=== PATIENT | male | born 1980 | race Caucasian/White ===

== ENCOUNTER → 2018-03-08 | Outpatient (REF) | payer BC ==
[2018-03-08 16:47] LABS: TESTOSTERONE 258 NG/DL (241-827)
[2018-03-08 16:47] LABS: PROLACTIN 17.9 NG/ML (2.1-17.7)
[2018-03-14 10:12] LABS: TESTOSTERONE %FREE+WEAKLY BOUN 28.3 % (9.0-46.0); TESTOSTERONE FREE+WEAKLY BOUND 77.3 ng/dL (40.0-250.0); TESTOSTERONE TOTAL 273 ng/dL (264-916)
[2018-03-14 10:12] LABS: GAD-65 AUTOANTIBODY <5.0 U/mL (0.0-5.0)
== END ==
LOC: M LABDRAW1 13:51
DX: F52.21 Male erectile disorder (principal); E11.65 Type 2 diabetes mellitus with hyperglycemia
CPT/HCPCS: 84146

== ENCOUNTER → 2018-10-01 | Outpatient (REF) | payer BC ==
[2018-10-01 14:22] LABS: PROLACTIN 8.8 NG/ML (2.1-17.7)
[2018-10-05 00:06] LABS: SOMATOMEDIN-C INSULIN GROWTH 92 ng/mL (83-233); TESTOSTERONE %FREE+WEAKLY BOUN 21.5 % (9.0-46.0); TESTOSTERONE FREE+WEAKLY BOUND 33.8 ng/dL (40.0-250.0); TESTOSTERONE TOTAL 157 ng/dL (264-916)
== END ==
LOC: M LABDRAW1 11:38
PROVIDERS: ATTEND Internal Medicine Endocrinology, Diabetes & Metabolism
DX: F52.21 Male erectile disorder (principal)

== ENCOUNTER → 2019-01-11 | Outpatient (REF) | payer BC ==
[2019-01-11 11:53] LABS: PROSTATIC SPECIFIC AG MONITOR 0.36 NG/ML (< 4.00)
== END ==
LOC: M LABDRAW1 08:56
PROVIDERS: ATTEND Internal Medicine Endocrinology, Diabetes & Metabolism
DX: F52.21 Male erectile disorder (principal)

== ENCOUNTER → 2019-04-22 | Outpatient (REF) | payer BC | LOC: M LABDRAW1 11:38 | PROVIDERS: ATTEND Internal Medicine Endocrinology, Diabetes & Metabolism | DX: F52.21 Male erectile disorder (principal) ==

== ENCOUNTER → 2019-10-17 | Outpatient (REF) | payer BC ==
[2019-10-17 12:43] LABS: HEMATOCRIT 45.6 % (42.0-52.0); HEMOGLOBIN 15.9 g/dl (13.5-17.5); MEAN CORPUSCULAR HEMOGLOBIN 31.6 pg (27.0-33.0); MEAN CORPUSCULAR HGB CONC 34.9 g/dl (32.0-36.5); MEAN CORPUSCULAR VOLUME 90.7 fl (80.0-96.0); PLATELET COUNT, AUTOMATED 213 10^3/uL (150-450); RED BLOOD COUNT 5.03 10^6/uL (4.30-6.10); WHITE BLOOD COUNT 6.5 10^3/uL (4.0-10.0)
== END ==
LOC: M LABDRAW1 12:05
PROVIDERS: ATTEND Internal Medicine Endocrinology, Diabetes & Metabolism
DX: F52.21 Male erectile disorder (principal)

== ENCOUNTER → 2021-06-28 | Outpatient (REF) | payer BC ==
[2021-06-28 18:56] LABS: CREATININE, URINE 98.9 MG/DL; MALB URINE SIEMENS 7.8 MG/L; MAU/CREAT RATIO 7.8 MCG/MG (0.0-30.0)
== END ==
LOC: M LAB REF 17:09
PROVIDERS: ATTEND Internal Medicine Endocrinology, Diabetes & Metabolism
DX: F52.21 Male erectile disorder (principal)

== ENCOUNTER 2023-05-14 07:56 | Emergency (ER) | payer BC ==
[~2023-05-14] VITALS: Ht 185.4 cm; Wt 95.7 kg
[2023-05-14 07:56] VITALS: TEMP 96.9
[2023-05-14 08:43] LABS: BASO # 0.1 10^3/uL (0.0-0.2); BASO % 0.7 % (0.0-1.0); EOS # 0.1 10^3/uL (0.0-0.5); EOS % 1.4 % (0.0-3.0); HEMATOCRIT 45.5 % (42.0-52.0); HEMOGLOBIN 16.3 g/dl (13.5-17.5); LYMPH # 1.2 10^3/uL (1.5-5.0); LYMPH % 11.8 % (24.0-44.0); MEAN CORPUSCULAR HEMOGLOBIN 32.1 pg (27.0-33.0); MEAN CORPUSCULAR HGB CONC 35.8 g/dl (32.0-36.5); MEAN CORPUSCULAR VOLUME 89.6 fl (80.0-96.0); MONO # 0.5 10^3/uL (0.0-0.8); MONO % 4.5 % (2.0-8.0); NEUTROPHILS # 8.1 10^3/uL (1.5-8.5); NEUTROPHILS % 80.8 % (36.0-66.0); PLATELET COUNT, AUTOMATED 210 10^3/uL (150-450); RED BLOOD COUNT 5.08 10^6/uL (4.30-6.10); WHITE BLOOD COUNT 10.1 10^3/uL (4.0-10.0)
[2023-05-14] MEDS ORDERED: MAALOX 30 ML SUSP *UDC PO ONE (08:50)
[2023-05-14 09:17] LABS: ALBUMIN 4.2 G/DL (3.2-5.2); BILIRUBIN,DIRECT 0.2 MG/DL (<0.4); BILIRUBIN,TOTAL 0.5 MG/DL (0.3-1.2); TOTAL PROTEIN 7.2 G/DL (5.7-8.2)
[2023-05-14 09:32] LABS: MB/CK RELATIVE INDEX 0.89 (< OR =4)
[2023-05-14] MEDS ORDERED: ISOVUE-370 76% 100ML VIAL As Ordered ONE (10:00)
[2023-05-14] MEDS ORDERED: ONDA4TAB6 PO (11:10)
[2023-05-14 11:21] VITALS: BP 175/99; O2SAT 100
== END 2023-05-14 11:24 | disposition home or self-care (01) ==
LOC: M ED 07:56
DX: R11.2 Nausea with vomiting, unspecified (principal); R10.13 Epigastric pain; R07.9 Chest pain, unspecified; E11.9 Type 2 diabetes mellitus without complications; I10 Essential (primary) hypertension; K21.9 Gastro-esophageal reflux disease without esophagitis
CPT/HCPCS: 71046; 74177; 80047; 80076; 82550; 82553; 83690; 84484; 85025; 93005; 99284; Q9967